=== PATIENT | female | born 1985 | race Caucasian/White ===

== ENCOUNTER 2016-08-18 06:09 | Day surgery (SDC) ==
[2016-08-17 13:17] LABS: HEMATOCRIT 41.5 % (37.0-47.0); MCH 31.1 PG (27-31); MCHC 33.7 g/dL (33-37); MCV 92.2 FL (81-99); MPV 9.2 FL (7.4-10.4); RBC 4.5 XMIL (4.2-5.4)
[2016-08-17 13:47] LABS: AGAP 11; BUN 14 mg/dL (8-22); CALCIUM 8.7 mg/dL (8.8-10.2); CHLORIDE 101 mmol/L (98-107); COSMO 276; POTASSIUM 4.6 mmol/L (3.5-5.1); SODIUM 138 mmol/L (136-145); TCO2 26 mmol/L (25-35)
[2016-08-17 13:49] LABS: ALKALINE PHOSPHATASE 31 U/L (32-104); DIRECT BILIRUBIN < 0.20 mg/dL (0.00-0.20); GOT 12 U/L (10-30); GPT 17 U/L (10-36); LIPASE 33 U/L (13-60); TOTAL BILIRUBIN 0.26 mg/dL (0.20-1.00); TOTAL PROTEIN 6.6 g/dL (6.3-8.3)
[2016-08-18] MEDS ORDERED: MARCAINE 0.25% PF/EPI 1:200,000 ONE (08:20)
[2016-08-18] MEDS ORDERED: LR 1,000 ML ONE ×3 (08:20→13:24)
[2016-08-18] MEDS ORDERED: SODIUM CHLORIDE 0.9% ONE (08:20)
[2016-08-18] MEDS ORDERED: TRANSDERM-SCOP ONE (08:22)
[2016-08-18] MEDS ORDERED: PEPCID ONE (08:22)
[2016-08-18] MEDS ORDERED: KEFZOL 2 GM/D5W 50 ML ONE (08:23)
[2016-08-18] MEDS ORDERED: VALIUM ONE (08:23)
--- NOTE | 2016-08-18 08:43 | Diag Imaging Result Document ---
PROCEDURE NAME: ABDOMEN/PELVIS W/CONTRAST - 08/18/2016 CT OF THE ABDOMEN WITH INTRAVENOUS AND ORAL CONTRAST: FINDINGS: There is some questionable fibrosis or atelectasis posteriorly in the left lower lobe which is more noticeable than on the previous study of 09/14/2013. The differences may simply be due to differences in inspiration. There are some granulomata in the spleen. There is some stranding in the fat lateral to the inferior right hepatic lobe which was also evidently present on the previous study of 09/14/2013. The adrenal glands are not enlarged. There is a splenule near the spleen anteriorly which was also present previously. The pancreas is stable in appearance. The adrenal glands are not enlarged. There are no apparent gallstones and the liver is, otherwise, stable in appearance. There is no evidence of appendicitis. There is stool throughout the colon without evidence of dilatation. The small bowel is not distended. There is no evidence of significant adenopathy or abnormal fluid collections. CT OF THE PELVIS WITH INTRAVENOUS AND ORAL CONTRAST: FINDINGS: The kidneys are unremarkable and stable in appearance. There is what appears to be a corpus luteum cyst in the left ovary measuring 17 mm in diameter. There is a small amount of free fluid in the cul-de-sac. There has been hysterectomy. The regional skeleton is intact. IMPRESSION: Nonspecific free pelvic fluid. Left ovarian cyst, probably corpus luteum. Otherwise, stable since 09/14/2013.
[2016-08-18 09:12] LABS: ALKALINE PHOSPHATASE 28 U/L (32-104); DIRECT BILIRUBIN < 0.20 mg/dL (0.00-0.20); GOT 11 U/L (10-30); GPT 17 U/L (10-36); LIPASE 26 U/L (13-60); TOTAL BILIRUBIN 0.32 mg/dL (0.20-1.00); TOTAL PROTEIN 5.9 g/dL (6.3-8.3)
--- NOTE | 2016-08-18 10:20 | Diag Imaging Result Document ---
PROCEDURE NAME: OPERATIVE CHOLANGIOGRAM - 08/18/2016 INTRAOPERATIVE CHOLANGIOGRAM, 1 VIEW: FINDINGS: There is a filling defect in the common hepatic duct which may be an air bubble. Otherwise, there is no evidence of filling defects or obstructing lesions, and there is contrast in the duodenum. IMPRESSION: No obstructing filling defects.
[2016-08-18] MEDS ORDERED: PHENERGAN ONE (11:09)
[2016-08-18] MEDS ORDERED: DEMEROL ONE (11:09)
[2016-08-18] MEDS ORDERED: ZOFRAN IV PRN (12:07)
[2016-08-18] MEDS ORDERED: NORCO-7.5 PO PRN (12:07)
[2016-08-18] MEDS ORDERED: DIPRIVAN 1% ONE (12:45)
[2016-08-18] MEDS ORDERED: FENTANYL ONE (12:45)
[2016-08-18 13:23] VITALS: BP 109/61
[2016-08-18] MEDS ORDERED: NEOSTIGMINE ONE (13:23)
[2016-08-18] MEDS ORDERED: XYLOCAINE-MPF 2% ONE (13:24)
[2016-08-18] MEDS ORDERED: ZOFRAN ONE (13:24)
[2016-08-18] MEDS ORDERED: ROBINUL ONE (13:24)
[2016-08-18] MEDS ORDERED: QUELICIN (DOSE) ONE (13:24)
[2016-08-18] MEDS ORDERED: ZEMURON ONE (13:24)
[2016-08-18] MEDS ORDERED: DECADRON ONE (13:24)
--- NOTE | 2016-08-18 16:17 | OPERATIVE NOTE ---
PROCEDURE DATE: 08/18/2016 PREOPERATIVE DIAGNOSIS: Symptomatic cholelithiasis. POSTOPERATIVE DIAGNOSES: 1. Cholecystitis. 2. Endometriosis. PROCEDURE PERFORMED: 1. Laparoscopic cholecystectomy with intraoperative cholangiogram. 2. Peritoneal biopsy of the lateral abdominal wall lateral to the liver. SURGEON: Memo Godwin MD COMPLICATIONS: None. ESTIMATED BLOOD LOSS: 10 mL. SPECIMENS: 1. Gallbladder. 2. Peritoneal implant. OPERATIVE INDICATION: This is a 30-year-old female, who presents with episodic right upper quadrant abdominal pain for last several weeks. It has become more persistent. She has had some ER visits, had labs that showed a mild elevation of her lipase a week ago. However, repeat labs showed normal LFTs. She does have family history of pancreatic cancer. We got a CT scan preoperatively that showed no intrapancreatic neoplasms noted. OPERATIVE FINDINGS: 1. There is a densely inflamed gallbladder with significant omental adhesions and adherent transverse colon. 2. Interpretation of intraoperative cholangiogram: There was a moderate length, nondilated cystic duct and a nondilated, actually very small common bile duct. There was rapid flow of contrast in the duodenum with no filling defects and normal filling of the common hepatic and bilateral 1st and 2nd degree biliary radicles. OPERATIVE NOTE: Risks, benefits, alternatives discussed with patient and she consented to the procedure. She was seen in the preoperative area and the surgery to be performed confirmed. She was taken operating room, placed in supine position. General anesthesia was induced without complication. All bony prominences were padded. Preincisional antibiotics were administered. The abdomen is prepped with chlorhexidine solution, draped in the usual fashion. Time-out was performed between nursing, surgical, and anesthesia staff. Periumbilical block was performed prior to making skin incision. A curvilinear infraumbilical incision was made and dissection carried down to the level of the fascia. The fascia was elevated and a midline incision was made and the abdomen was entered in a controlled fashion, placed a 12 mm Bethany trocar. The abdomen was insufflated to 15 mmHg. She tolerated this well. Placed her in reverse Trendelenburg position and placed 5 mm trocars after infiltration of the peritoneum at the epigastric location, midclavicular line, off the costal margin, and one more laterally. There were significant omental adhesions of the gallbladder. We took these down with a combination electrocautery and bluntly. This took quite some time, but we were able to ultimately obtained retraction of the gallbladder through a lateral port with locking grasper starting laterally and progressing medially, we stripped the inflammatory adhesions and the peritoneum off the infundibulocystic junction exposing the cystic duct. There were some small cystic artery branches that course through this area we took with lecture cautery to facilitate this dissection. We were able to readily establish a critical view of safety with the liver visualized through the cystic duct. We placed a clip on the gallbladder side and made a ductotomy, we performed cholangiogram with above findings using a taut catheter. We then triply clipped the cystic duct and divided this. There was no bile leakage noted. After dividing the duct, we then began taking the gallbladder out of the gallbladder fossa. There was a large cystic artery that coursed parallel to the gallbladder with a small branch leading into the gallbladder. We clipped the small branch and divided this with electrocautery and then the remainder of the cystic artery was able to be dissected free. We removed the gallbladder from the gallbladder fossa obtaining hemostasis as we went and there was no rupture or spillage of bile or stones. There was a very tiny possible tubular structure entering posterior and lateral directly into the gallbladder. It was possible this was inflammatory adhesion. It did not bleed when transected and there was no evidence of bile leakage. However, we did place a clip here. This was well away from any portal structure as well to the gallbladder fossa. The gallbladder was quite adherent to the gallbladder fossa from inflammatory adhesions. We then it took out without any rupture and placed in EndoCatch bag, irrigated abdomen. Upon inspection above the level of the liver laterally, there was a small approximately 1 cm implant that was dark black in appearance and appeared to be an endometrioma. However, we elected to biopsy this and using a biopsy forceps we removed this in its entirety. Hemostasis was noted. We then again inspected the gallbladder fossa, it was hemostatic, no bile leakage, good closure of the cystic duct. We removed the trocars under direct visualization. They were hemostatic. Desufflated the abdomen and brought the gallbladder out through the umbilical incision. Closed the fascia with interrupted 0 Vicryl sutures, 4-0 Monocryl for the skin, Dermabond was applied. She tolerated it well, awoken, taken to PACU, talked to family.
== END 2016-08-18 12:30 | disposition home or self-care (01) ==
LOC: OPS 06:09
PROVIDERS: ATTEND Surgery
DX: K80.10 Calculus of gallbladder with chronic cholecystitis without obstruction (principal); N94.89 Other specified conditions associated with female genital organs and menstrual cycle; N80.3 Endometriosis of pelvic peritoneum; F17.210 Nicotine dependence, cigarettes, uncomplicated
CPT/HCPCS: 74177; 74300; 80048; 80076; 83690; 85027; 88304; 88305; C1751; J0330; J0690; J1100; J2175; J2405; J2550; J3010; J7120; Q9966; Q9967; J2710; S0020